=== PATIENT | male | born 2000 | race Caucasian/White ===

== ENCOUNTER → 2022-11-26 | Outpatient (CLI) | payer OTHER ==
[~2022-11-26] MED LIST: AMITRIPTYLINE50 MG PO; BENZTROPINE1 MG PO; CELEXA20 MG PO; CEPHALEXIN500 M1 PO; DAYTRONA TOP; HYDROXYZINE HCL25 MG PO; INDERAL 10MG10 MG PO; OLANZAPINE10 M1 PO; REGLAN 10MG10 MG/TAB PO; RITALIN LA10 MG PO; RITALIN-SR20 MG PO; ZOFRAN ODT4 MG PO
== END ==
LOC: RAD 07:05
DX: E88.89 Other specified metabolic disorders (principal); K82.8 Other specified diseases of gallbladder; R16.2 Hepatomegaly with splenomegaly, not elsewhere classified; D64.9 Anemia, unspecified